=== PATIENT | female | born 1980 | race Caucasian/White ===

== ENCOUNTER 2017-10-27 13:25 | Emergency (ER) | payer SELFPAY ==
[~2017-10-27] VITALS: Ht 170.2 cm; Wt 93.7 kg
[~2017-10-27 13:25] MED LIST: OXYC60TA8 PO
[2017-10-27 13:27] VITALS: BP 111/58; PULSE 95; RESP 18; TEMP 98.5; O2SAT 96
[2017-10-27] MEDS ORDERED: CEPH-460 PO (14:26)
[2017-10-27] MEDS ORDERED: BACT800T5 PO (14:26)
--- NOTE | 2017-10-27 14:26 | PD ---
HPI Chief Complaint: Bite or Sting Time Seen by Provider: 13:38 Travel History International Travel<30 days: No Contact w/Intl Traveler<30days: No Traveled to known affect area: No History of Present Illness HPI This is a 37-year-old female here with abscess to left hand times one day. She reports that she was possibly bitten by a spider 3-4 days ago. She reports the hand has become increasingly more painful and swollen worsening over the last 24 hours. She was using black salve in an attempt to bring the area to a head. She reports a history of IV drug abuse in the past. She last used approximately 3-4 months ago. She is denying that this is an injection site. She denies fever or chills. Pain is moderate worse with palpation of the area and slightly relieved with rest. PFSH Past Medical History Medical History: Denies Significant Hx Depression: Yes Seizures: Yes ?: Not Tubal Ligation: Yes Past Surgical History Section: Yes Other Surgery: Yes (sacroiliac joint debridement) Social History Alcohol Use: Yes (occasional ) Tobacco Use: Yes (1/2 ppd) Substance Use: Yes (IVDA STATES ALS TUSED 2-3 MONTHS AGO) Allergies-Medications (Allergen,Severity, Reaction): Coded Allergies: promethazine (Verified Allergy, Mild, 10/27/17) restless leg No Known Allergies (Unverified Allergy, Unknown, 10/27/17) Reported Meds & Prescriptions Reported Meds & Active Scripts Active Reported Oxycontin (Oxycodone HCl) 60 Mg Tab 60 Mg PO TID Review of Systems Except as stated in HPI: all other systems reviewed are Neg General / Constitutional: No: Fever Eyes: No: Visual changes HENT: No: Headaches Cardiovascular: No: Chest Pain or Discomfort Respiratory: No: Shortness of Breath Gastrointestinal: No: Abdominal Pain Genitourinary: No: Dysuria Physical Exam Narrative GENERAL: Alert and well-appearing 37-year-old female. SKIN: Warm and dry. Warmth and erythema isolated to the dorsal aspect of the hand which does not extend into the fingers or up the forearm. There is a central 1.5 cm fluctuant abscess. No drainage. No lymphangitis. Patient is able to flex and extend the fingers. Sensation. Brisk Refill. HEAD: Normocephalic. EYES: No injection or drainage. NECK: Supple CARDIOVASCULAR: Regular rate and rhythm RESPIRATORY: Breath sounds equal bilaterally. No accessory muscle use. MUSCULOSKELETAL: No cyanosis. See skin noted above Data Data Last Documented VS Vital Signs Date Time Temp Pulse Resp B/P (MAP) Pulse Ox O2 Delivery O2 Flow Rate FiO2 10/27/17 13:27 98.5 95 18 111/58 (75) 96 Orders Orders Wound Culture And Gram Stain (10/27/17 14:08) MDM Medical Decision Making Medical Screen Exam Complete: Yes Emergency Medical Condition: Yes Differential Diagnosis Abscess, cellulitis, lymphangitis Narrative Course 37 old female here with an abscess to the left hand for the last 3-4 days. Symptoms worsened over the last 24 hours. She denies fever or chills. She is nontoxic appearing. She reports a history of IV drug use but is adamant she has not injected for the last 4 months. Denies any possibility of a retained foreign body. Incision and drainage was performed. Patient tolerated procedure well. She was instructed to return in 2 days for packing removal. Procedures Procedure Narrative INCISION AND DRAINAGE OF ABSCESS: The area was prepped and was sterilely draped. A subcutaneous wheal of 1 % Xylocaine was used to anesthetize the area properly. A number 11 scalpel was used to make a 0.5 -cm incision across the area of the abscess. The abscess was drained, complex loculations were broken down, and irrigated with normal saline. Cultures were obtained. Quarter inch iodoform packing was placed in the wound. Sterile dressing applied. Patient advised to have packing removed in two days. Diagnosis Primary Impression: Abscess Referrals: Primary Care Physician Additional Instructions: Antibiotics as prescribed. Warm compresses to the area several times per day. Return for recheck and packing removal in 2 days. Return prior if he developed new or worsening symptoms Scripts Cephalexin (Keflex) 500 Mg Cap 500 MG PO Q6H for Infection for 10 Days, #40 CAP 0 Refills Prov: Sharmaine Nicole 10/27/17 Sulfamethoxazole-Trimethoprim (Bactrim DS) 800-160 Mg Tab 1 TAB PO BID for Infection, #20 TAB 0 Refills Prov: Sharmaine Nicole 10/27/17 Disposition: 01 DISCHARGE HOME Condition: Stable Sharmaine Nicole Oct 27, 2017 14:26
== END 2017-10-27 14:17 | disposition home or self-care (01) ==
LOC: PHEFT 13:25
DX: L02.512 Cutaneous abscess of left hand (principal); B95.62 Methicillin resistant Staphylococcus aureus infection as the cause of diseases classified elsewhere; F32.9 Major depressive disorder, single episode, unspecified; R56.9 Unspecified convulsions; F17.200 Nicotine dependence, unspecified, uncomplicated
CPT/HCPCS: 10061; 86403; 87070; 87186; 87205